=== PATIENT | female | born 1950 | race Caucasian/White ===

== ENCOUNTER 2024-03-04 12:01 | Day surgery (SDC) | payer MEDICARE, OTHER ==
[~2024-03-04] VITALS: Ht 162.6 cm; Wt 50.6 kg
[~2024-03-04 12:01] MED LIST: ATOR20 PO; RXHYDACE PO; SERT25 PO
[2024-03-04] MEDS ORDERED: Lactated Ringer's 1,000 ML IV ONE ×2 (12:56→13:06)
[2024-03-04] MEDS ORDERED: Inderal 20 mg T20 MG PO (13:05)
[2024-03-04] MEDS ORDERED: propofoL 20 ML IV ONE ×2 (13:06→13:07)
[2024-03-04 14:36] VITALS: BP 94/543
== END 2024-03-04 14:30 | disposition home or self-care (01) ==
LOC: ORSCSDS 12:01
PROVIDERS: Surgery
PROC: 0DJD8ZZ Inspection of Lower Intestinal Tract, Via Natural or Artificial Opening Endoscopic (ICD-10-PCS; principal; 2024-03-04 13:30)
DX: Z12.11 Encounter for screening for malignant neoplasm of colon (principal); E11.9 Type 2 diabetes mellitus without complications; Z79.899 Other long term (current) drug therapy
CPT/HCPCS: J2704; J7120